=== PATIENT | male | born 2000 | race Two or more races ===

== ENCOUNTER 2022-11-07 15:04 | Inpatient (IN) | payer BC ==
[~2022-11-07] VITALS: Ht 172.7 cm; Wt 61.8 kg
[2022-11-07] MEDS ORDERED: CITA-144 PO (15:18)
[2022-11-07] MEDS ORDERED: BUSP15 PO (15:18)
[2022-11-07] MEDS ORDERED: ALPR-705 PO (15:18)
[2022-11-07 18:25] LABS: COVID AG,FIA SOURCE NASOPHARYNGEAL
[2022-11-07 18:31] LABS: BASOPHILS % (AUTO) 0.6 % (0.0-2.0); EOSINOPHILS % (AUTO) 4.1 % (1.0-6.0); HEMATOCRIT 40.3 % (41-53); HEMOGLOBIN 13.3 g/dL (13.5-17.5); LYMPHOCYTES # (AUTO) 1.8 K/uL (1.0-4.8); LYMPHOCYTES % (AUTO) 24.8 % (22.0-44.0); MEAN CORPUSCULAR HEMOGLOBIN 30.8 pg (26.0-34.0); MEAN CORPUSCULAR VOLUME 94 fL (80-100); MONOCYTES # (AUTO) 0.5 K/uL (0.1-1.0); MONOCYTES % (AUTO) 6.4 % (2.0-9.0); NEUTROPHILS # (AUTO) 4.6 K/uL (1.8-7.7); NEUTROPHILS % (AUTO) 64.1 % (40.0-70.0); PLATELET COUNT (AUTO) 239 K/uL (150-450); RED BLOOD CELL COUNT(AUTO) 4.31 MIL/uL (4.50-5.90); RED CELL DISTRIBUTION WIDTH 12.9 % (11.5-14.5)
[2022-11-07 19:53] LABS: ANION GAP 12 mmol/L (8-16); CALCIUM, TOTAL 9.4 mg/dL (8.8-10.5); CARBON DIOXIDE 28 mmol/L (22-29); CHLORIDE 103 mmol/L (98-107); CREATININE 0.91 mg/dL (0.60-1.30); GLOMERULAR FILTR. RATE CALC > 60 mL/min (>60); GLUCOSE,RANDOM 123 mg/dL (70-110); POTASSIUM 4.2 mmol/L (3.5-5.1); SODIUM SERUM 143 mmol/L (136-145); UREA NITROGEN, BLOOD 11 mg/dL (7-18)
[2022-11-07 19:58] LABS: ALANINE AMINOTRANSFERASE 177 U/L (12-78); ALBUMIN 4.1 g/dL (3.4-5.0); ALKALINE PHOSPHATASE 106 U/L (46-116); ASPARTATE AMINOTRANSFERASE 48 U/L (15-37); BILIRUBIN,TOTAL 0.7 mg/dL (0.1-1.0); TOTAL PROTEIN, SERUM 7.4 g/dL (6.4-8.2)
[2022-11-07] MEDS ORDERED: HALOPERIDOL 5 MG TABLET PO PRN (20:15)
[2022-11-07] MEDS ORDERED: ZOLPIDEM TARTRATE 10 MG TABLET PO PRN (20:15)
[2022-11-07] MEDS ORDERED: LORazepam 2 MG TABLET PO PRN (20:15)
[2022-11-07 21:00] VITALS: BP 138/83
[2022-11-08 08:36] LABS: APPEARANCE,URINE CLEAR (CLEAR); BILIRUBIN,URINE NEGATIVE (NEGATIVE); GLUCOSE, URINE (UA) NEGATIVE (NEGATIVE); KETONES,URINE NEGATIVE (NEGATIVE); LEUKOCYTE ESTERASE ,URINE NEGATIVE (NEGATIVE); NITRATE,URINE NEGATIVE (NEGATIVE); OCCULT BLOOD,URINE NEGATIVE (NEGATIVE); PROTEIN,URINE 30-70 mg/dL (NEGATIVE); SPECIFIC GRAVITIY, URINE 1.033 (1.003-1.030)
[2022-11-08 08:43] LABS: AMPHET/METH SCREEN,URINE NEGATIVE (NEGATIVE); BARBITURATE SCREEN, URINE NEGATIVE (NEGATIVE); BENZODIAZEPINES SCREEN,URINE POSITIVE (NEGATIVE); CANNABINOID SCREEN,URINE POSITIVE (NEGATIVE); COCAINE SCREEN,URINE NEGATIVE (NEGATIVE); METHADONE SCREEN, URINE NEGATIVE (NEGATIVE); OPIATE SCREEN,URINE NEGATIVE (NEGATIVE); PHENCYCLIDINE SCREEN,URINE NEGATIVE (NEGATIVE)
[2022-11-08] MEDS: CITALOPRAM HYDROBROMIDE 20 MG TABLET PO SCH (11:16)
[2022-11-08] MEDS: RisperiDONE 0.5 MG TABLET PO SCH ×2 (11:16→16:55)
[2022-11-08] MEDS: BusPIRone HCL 10 MG TABLET PO SCH ×2 (11:16→16:55)
[2022-11-08] MEDS ORDERED: DOCUSATE SODIUM 100 MG CAPSULE PO PRN (14:00)
[2022-11-08] MEDS ORDERED: IBUPROFEN 400 MG TABLET PO PRN (14:00)
[2022-11-08] MEDS ORDERED: ONDANSETRON HCL 4 MG TABLET PO PRN (14:00)
[2022-11-08] MEDS ORDERED: LOPERAMIDE HCL 2 MG CAPSULE PO PRN (14:00)
[2022-11-08] MEDS ORDERED: ALBUTEROL SULFATE HFA 90 MCG/PUFF 8 GM INHALER IH PRN (14:00)
[2022-11-08] MEDS ORDERED: ACETAMINOPHEN 325 MG TABLET PO PRN (14:00)
[2022-11-08] MEDS ORDERED: CloNIDine HCL 0.1 MG TABLET PO PRN (14:00)
[2022-11-08] MEDS ORDERED: NICOTINE 14 MG/24 HOUR PATCH TD PRN (14:00)
[2022-11-08] MEDS ORDERED: GuaiFENesin/D-METHORPHAN [SUGAR-FREE] 200-20MG/10 ML SYRUP UDCUP PO PRN (14:00)
[2022-11-08] MEDS ORDERED: MAG HYDROX/AL HYDROX/SIMETH ES 30 ML SUSPENSION UDCUP PO PRN (14:00)
[2022-11-08] MEDS ORDERED: MAGNESIUM HYDROXIDE SUSPENSION 30 ML UDCUP PO PRN (14:00)
[2022-11-08] MEDS ORDERED: PETROLATUM,WHITE 28 GM JELLY TP PRN (14:00)
[2022-11-08 16:33] VITALS: BP 143/76
[2022-11-08] MEDS ORDERED: MIRTAZAPINE 15 MG TABLET PO SCH ×3 (21:00)
[2022-11-08 21:03] VITALS: BP 119/89
[2022-11-09] MEDS: CITALOPRAM HYDROBROMIDE 20 MG TABLET PO SCH (08:30)
[2022-11-09] MEDS: BusPIRone HCL 10 MG TABLET PO SCH (08:30)
[2022-11-09] MEDS: RisperiDONE 0.5 MG TABLET PO SCH (08:30)
[2022-11-09 11:14] VITALS: BP 117/69
[2022-11-09] MEDS ORDERED: CITA-144 PO (12:33)
[2022-11-09] MEDS ORDERED: MIRT-89 PO (12:33)
[2022-11-09] MEDS ORDERED: RISP0.5T66 PO (12:33)
[2022-11-09] MEDS ORDERED: BUSP10TA23 PO (12:33)
== END 2022-11-09 15:00 | disposition home or self-care (01) | DRG 885 ==
LOC: EMS 15:04 → 3EI 20:48
PROVIDERS: ADMIT Psychiatry & Neurology Child & Adolescent Psychiatry; ATTEND Psychiatry & Neurology Child & Adolescent Psychiatry
DX: F33.2 Major depressive disorder, recurrent severe without psychotic features (principal); R45.851 Suicidal ideations; F41.9 Anxiety disorder, unspecified; Z20.822 Contact with and (suspected) exposure to COVID-19; D64.9 Anemia, unspecified; Z79.899 Other long term (current) drug therapy
CPT/HCPCS: 80053; 80307; 81003; 85025; 99285; G0480